=== PATIENT | female | born 1950 | race Caucasian/White ===

== ENCOUNTER → 2024-02-07 06:30 | Day surgery (SDC) | payer MEDICARE, BC, SELFPAY | LOC: GI 06:30 | PROVIDERS: ATTENDING PHYSICIAN Internal Medicine | DX: Z12.11 Encounter for screening for malignant neoplasm of colon (principal); Z86.010 Personal history of colon polyps; K57.30 Diverticulosis of large intestine without perforation or abscess without bleeding | CPT/HCPCS: G0105 ==